=== PATIENT | female | born 1950 | race Caucasian/White ===

== ENCOUNTER 2016-08-04 16:32 | Emergency (ER) | payer BC ==
[~2016-08-04] VITALS: Ht 167.6 cm; Wt 74.8 kg
[2016-08-04] MEDS ORDERED: VISTARIL50 MG PO (16:55)
[2016-08-04] MEDS ORDERED: CLONAZEPAM1 MG PO (16:56)
[2016-08-04] MEDS ORDERED: ZANTAC150 MG PO (16:56)
[2016-08-04] MEDS ORDERED: FLEXERIL10 MG PO (16:57)
[2016-08-04] MEDS ORDERED: LYRICA150 MG PO (16:57)
[2016-08-04] MEDS ORDERED: SOMA250 MG PO (16:57)
[2016-08-04] MEDS ORDERED: ZANAFLEX4 M1 PO (16:58)
[2016-08-04] MEDS ORDERED: ULTRAM50 MG PO (16:59)
[2016-08-04 17:45] LABS: HEMATOCRIT 38.4 % (36.0-46.0); MCH 29.5 PG (29.0-34.0); MCHC 34.4 G/DL (30.0-36.0); MCV 85.9 FL (83-99); MEAN PLAT.VOLUME 9.8 uM^3 (9.5-12.4); PLATELET COUNT 260 K/uL (156-360); RBC DIS.WIDTH-CV 13.7 % (11.8-14.6); RBC DIS.WIDTH-SD 42.2 % (39-53); RED BLOOD COUNT 4.47 M/uL (3.80-5.20); WHITE BLOOD COUNT 4.5 K/uL (4.1-10.2)
[2016-08-04 17:56] LABS: CHLORIDE 109 mEq/L (99-109); POTASSIUM 3.8 mEq/L (3.7-5.4); SODIUM 143 mEq/L (136-147)
[2016-08-04 17:58] LABS: GLUCOSE 88 mg/dL (70-99)
[2016-08-04 17:59] LABS: ANION GAP 9 MEQ/L (2-14)
[2016-08-04 18:02] LABS: GFR ESTIMATE (CALCULATED) > 59 mL/min/
[2016-08-04 18:03] LABS: UREA NITROGEN (BUN) 15 mg/dL (9-23)
[2016-08-04 18:05] LABS: TROP-I INTERPRETATION NEGATIVE; TROPONIN-I < 0.01 ng/mL (0.0-0.30)
[2016-08-04 19:07] VITALS: BP 142/79
== END 2016-08-04 19:08 | disposition home or self-care (01) ==
LOC: EME 16:32
PROVIDERS: Nurse Practitioner Family
DX: I10 Essential (primary) hypertension (principal); M25.521 Pain in right elbow; G89.29 Other chronic pain; F17.290 Nicotine dependence, other tobacco product, uncomplicated; Z87.891 Personal history of nicotine dependence; Z88.0 Allergy status to penicillin; Z88.4 Allergy status to anesthetic agent; Z88.6 Allergy status to analgesic agent
CPT/HCPCS: 71020; 80048; 84484; 85027; 93005; 99281; 99284